=== PATIENT | male | born 1985 ===

== ENCOUNTER 2017-03-03 20:31 | Emergency (ER) | payer SELFPAY ==
[2017-03-03 20:48] VITALS: BP 131/90; PULSE 97; RESP 20; TEMP 98.1; O2SAT 98
[2017-03-03 21:18] LABS: RBC URINE < 1 /hpf (0-3); URINE BACTERIA RARE (<OCC); URINE BILIRUBIN NEGATIVE (NEGATIVE); URINE BLOOD NEGATIVE (NEGATIVE); URINE COLOR Straw (YELLOW); URINE GLUCOSE (UA) NORMAL (Normal); URINE KETONE NEGATIVE (NEGATIVE); URINE LEUKOCYTE ESTERASE NEG Leu/uL (Negative); URINE PROTEIN NEGATIVE (NEGATIVE); URINE UROBILINOGEN NORMAL mg/dL (0.2-1.0); WBC URINE < 1 /hpf (0-5)
[2017-03-03] MEDS ORDERED: Naproxen 550 mg Tab PO STA (21:40)
[2017-03-03] MEDS ORDERED: Naproxen 550 mg Tab PO ONE (21:48)
--- NOTE | 2017-03-03 22:37 | C.PDOC ---
History Of Present Illness Patient is a 31 year old male who presents to the ER with a complaint of right sided lower back pain for the past 2 weeks that is now radiating to the right buttock and leg. Patient states it worsens when he attempts to stand, bends forward or moves. Patient also reports having intermittent "twinges" in his chest. Denies trauma, numbness, weakness, or bladder/bowel incontinence. Time Seen by Provider: 03/03/17 20:52 Chief Complaint (Nursing): Back Pain History Per: Patient History/Exam Limitations: no limitations Onset/Duration Of Symptoms: Days (14), Intermittent Episodes Current Symptoms Are (Timing): Still Present Quality Of Discomfort: Unable To Describe Previous Symptoms: None. denies: Prior Injury Associated Symptoms: denies: Incontinence, New Weakness, New Numbness Exacerbating Factor(s): Movement, Standing, Other (Bending forward) Recent travel outside of the [place]: No Past Medical History Reviewed: Historical Data, Nursing Documentation, Vital Signs Vital Signs: Last Vital Signs Temp 98.1 F 03/03/17 20:45 Pulse 97 H 03/03/17 20:45 Resp 20 03/03/17 20:45 BP 131/90 03/03/17 20:45 Pulse Ox 98 03/03/17 23:39 - Medical History PMH: No Chronic Diseases Surgical History: No Surg Hx Family History: States: Unknown Family Hx - Social History Hx Alcohol Use: Yes Hx Substance Use: No Review Of Systems Except As Marked, All Systems Reviewed And Found Negative. Cardiovascular: Positive for: Other ("twinges" in chest) Genitourinary: Negative for: Incontinence Musculoskeletal: Positive for: Back Pain (Lower right) Neurological: Negative for: Weakness, Numbness Physical Exam - Physical Exam Appears: Non-toxic Skin: Normal Color, Warm, Dry, No Rash Head: Atraumatic, Normacephalic Eye(s): bilateral: Normal Inspection, PERRL, EOMI Oral Mucosa: Moist Throat: No Erythema, No Exudate Neck: Normal ROM, Supple Chest: Symmetrical, No Tenderness, No Ecchymosis, No Subcutaneous Emphysema Cardiovascular: Rhythm Regular, No Friction Rub, No Murmur Respiratory: Normal Breath Sounds, No Rales, No Rhonchi, No Wheezing Gastrointestinal/Abdominal: Soft, No Tenderness Back: No CVA Tenderness, No Vertebral Tenderness, Paraspinal Tenderness (Right, lumbar) Extremity: Normal ROM, No Calf Tenderness, No Swelling Neurological/Psych: Oriented x3, Normal Speech, Normal Cognition, Normal Motor, Normal Sensation Gait: Steady ED Course And Treatment O2 Sat by Pulse Oximetry: 98 (Room air) Pulse Ox Interpretation: Normal - Radiology CXR: Interpreted by Me, Viewed By Me CXR Interpretation: Yes: No Acute Disease - Other Rad Lumbar spinal x-ray X-Ray: Interpreted by Me, Viewed By Me Interpretation: No acute fractures or dislocations Progress Note: CXR, spinal x-ray, STD labs and urine culture. Flexeril and anaprox administered. Medical Decision Making Medical Decision Making: The patient symptoms are muscular in nature as they are exacerbated by movement and bending. On re-exam, the patient reports improvement of symptoms. Lungs are CTA, heart is RRR, abdomen is soft, non-tender and tolerating PO well. Ambulatory in the ED with steady gait, Follow up with the medical doctor within 1-2 days. return if worsened. Disposition - Disposition Referrals: [facility] [Outside] Disposition: HOME/ ROUTINE Disposition Time: 22:34 Condition: GOOD Additional Instructions: Follow up with the medical doctor within 1-2 days. return if worsened. Prescriptions: Acetaminophen [Tylenol] 325 mg PO Q6 PRN #30 tab PRN Reason: Pain, Mild (1-3) diaZEpam [Valium] 5 mg PO TID #21 tab Naproxen [Naprosyn] 500 mg PO BID #20 tab Instructions: Lumbar Radiculopathy (ED) - Clinical Impression Clinical Impression: Lumbar radiculopathy - Scribe Statement The provider has reviewed the documentation as recorded by the Scribpamela Pablo All medical record entries made by the Remingtonibpamela were at my direction and personally dictated by me. I have reviewed the chart and agree that the record accurately reflects my personal performance of the history, physical exam, medical decision making, and the department course for this patient. I have also personally directed, reviewed, and agree with the discharge instructions and disposition.
--- NOTE | 2017-03-04 10:29 | RAD ---
HISTORY: pain in chest COMPARISON: None TECHNIQUE: Chest PA and lateral FINDINGS: LUNGS: No active pulmonary disease. PLEURA: No significant pleural effusion identified. No pneumothorax apparent. CARDIOVASCULAR: Normal. OSSEOUS STRUCTURES: No significant abnormalities. VISUALIZED UPPER ABDOMEN: Normal. OTHER FINDINGS: None. IMPRESSION: No active pulmonary disease.
--- NOTE | 2017-03-04 10:45 | RAD ---
PROCEDURE: Radiographs of the Lumbar Spine. HISTORY: Back pain COMPARISON: No prior. FINDINGS: BONES: There is normal alignment of the lumbar vertebral bodies. There is straightening of the lumbar spine with loss of normal lumbar lordosis. Vertebral height is maintained. Bone mineralization is normal. There is no acute fracture, spondylolysis or spondylolisthesis. DISC SPACES: The disc spaces are preserved. OTHER FINDINGS: There are no pathologic soft tissue calcifications. Both sacroiliac joints are normal. IMPRESSION: No acute fracture, spondylolysis or spondylolisthesis.
== END 2017-03-03 22:44 | disposition home or self-care (01) ==
LOC: C.ER 20:31
DX: M54.16 Radiculopathy, lumbar region (principal)

== ENCOUNTER 2017-03-15 16:50 | Emergency (ER) | payer OTHER ==
[2017-03-15] MEDS ORDERED: Sodium Chloride 0.9% 1,000 ML IV ONE (17:30)
[2017-03-15] MEDS ORDERED: Sodium Chloride 0.9% 1,000 ML ONE (17:41)
--- NOTE | 2017-03-15 17:44 | C.PDOC ---
History Of Present Illness 31 y/o male presents to ED with complaints of abdominal pain for 2 days with associated nausea. Patient denies vomiting, diarrhea, urinary symptoms, fever, chills or any other complaints at this time. Time Seen by Provider: 03/15/17 17:11 Chief Complaint (Nursing): Abdominal Pain History Per: Patient History/Exam Limitations: no limitations Onset/Duration Of Symptoms: Days Current Symptoms Are (Timing): Still Present Location Of Pain/Discomfort: Epigastric Radiation Of Pain To:: Back Exacerbating Factors: None Last Bowel Movement: Today Recent travel outside of the [place]: No Past Medical History Reviewed: Historical Data, Nursing Documentation, Vital Signs Vital Signs: Last Vital Signs Temp 98.1 F 03/15/17 17:02 Pulse 114 H 03/15/17 17:02 Resp 18 03/15/17 17:02 BP 116/80 03/15/17 17:02 Pulse Ox 99 03/15/17 17:45 - Medical History PMH: No Chronic Diseases Surgical History: No Surg Hx Family History: States: Unknown Family Hx - Social History Hx Alcohol Use: Yes Hx Substance Use: No - Immunization History Hx Tetanus Toxoid Vaccination: No Hx Influenza Vaccination: No Hx Pneumococcal Vaccination: No Review Of Systems Except As Marked, All Systems Reviewed And Found Negative. Constitutional: Negative for: Fever, Chills Respiratory: Negative for: Cough Gastrointestinal: Positive for: Abdominal Pain. Negative for: Nausea, Vomiting , Diarrhea Genitourinary: Negative for: Dysuria, Frequency Musculoskeletal: Negative for: Back Pain Skin: Negative for: Rash Physical Exam - Physical Exam Appears: Non-toxic, No Acute Distress Skin: Normal Color, Warm Head: Atraumatic, Normacephalic Oral Mucosa: Moist Neck: Normal Cardiovascular: Rhythm Regular, No Murmur Respiratory: Normal Breath Sounds, No Rales, No Rhonchi, No Wheezing Gastrointestinal/Abdominal: Soft, Tenderness (Mild EPigas), No Guarding, No Rebound Extremity: Normal ROM, Capillary Refill (<2 seconds), No Deformity Neurological/Psych: Oriented x3 Gait: Steady ED Course And Treatment - Laboratory Results Result Diagrams: 03/15/17 17:43 03/15/17 17:43 Lab Interpretation: Normal ECG: Interpreted By Me ECG Rhythm: Sinus Rhythm ECG Interpretation: Normal O2 Sat by Pulse Oximetry: 99 (RA) Pulse Ox Interpretation: Normal Progress Note: Treated with IVF NSS. On re-evaluation abdomen soft non-tender Medical Decision Making Medical Decision Making: Orders: Labs Disposition Counseled Patient/Family Regarding: Studies Performed, Diagnosis, Need For Followup, Rx Given - Disposition Referrals: [facility] [Outside] [facility] [Outside] Disposition Time: 18:50 Condition: STABLE Prescriptions: Famotidine [Pepcid] 20 mg PO BID #20 tab Instructions: Abdominal Pain (ED) - POA Present On Arrival: None - Clinical Impression Clinical Impression: Abdominal pain - PA / ENGRAVER AUTOMATIC / Resident Statement MD/DO has reviewed & agrees with the documentation as recorded. - Scribe Statement The provider has reviewed the documentation as recorded by the Remingtonibpamela Thrasher All medical record entries made by the Yuliya were at my direction and personally dictated by me. I have reviewed the chart and agree that the record accurately reflects my personal performance of the history, physical exam, medical decision making, and the department course for this patient. I have also personally directed, reviewed, and agree with the discharge instructions and disposition.
[2017-03-15 17:47] LABS: BASO # 0.1 K/uL (0.0-0.2); BASO % 0.9 % (0.0-2.0); EOS # 0.2 K/uL (0.0-0.7); EOS % 1.9 % (0.0-4.0); HEMOGLOBIN 13.4 g/dL (12.0-18.0); LYMPH # 2.5 K/uL (1.0-4.3); LYMPH % 31.2 % (20.0-40.0); MEAN CORPUSCULAR HEMOGLOBIN 28.1 pg (27.0-31.0); MEAN PLATELET VOLUME 8.5 fL (7.2-11.7); MONO # 0.8 K/uL (0.0-0.8); MONO % 9.9 % (0.0-10.0); NEUT # 4.5 K/uL (1.8-7.0); NEUT % 56.1 % (50.0-75.0); NRBC % 0.1 % (0.0-2.0); RBC 4.77 Mil/uL (4.40-5.90); RED CELL DISTRIBUTION WIDTH 13.3 % (11.5-14.5); WHITE BLOOD COUNT 8.1 K/uL (4.8-10.8)
[2017-03-15 17:55] LABS: URINE BILIRUBIN NEGATIVE (NEGATIVE); URINE BLOOD NEGATIVE (NEGATIVE); URINE CLARITY Clear (Clear); URINE COLOR Yellow (YELLOW); URINE GLUCOSE (UA) NORMAL (Normal); URINE LEUKOCYTE ESTERASE NEG Leu/uL (Negative); URINE NITRATE NEGATIVE (NEGATIVE); URINE PROTEIN NEGATIVE (NEGATIVE); URINE UROBILINOGEN NORMAL mg/dL (0.2-1.0)
[2017-03-15 17:56] LABS: ALBUMIN 4.1 g/dL (3.5-5.0)
[2017-03-15 17:58] LABS: GFR AFRICAN-AMERICAN > 60; GFR NON-AFRICAN AMERICAN > 60
[2017-03-15 17:59] LABS: ALT/SGPT 20 U/L (21-72); AST/SGOT 18 U/L (17-59); BLOOD UREA NITROGEN 9 mg/dL (9-20); LIPASE 100 U/L (23-300)
[2017-03-15 18:00] LABS: CALCIUM 8.9 mg/dl (8.6-10.4)
[2017-03-15 19:18] VITALS: BP 116/78; PULSE 82; RESP 20; TEMP 98.4; O2SAT 100
--- NOTE | 2017-03-17 06:39 | CARD ---
APPROVED REPORT EKG Measurement Heart [id number] ND [id number] <Conclusion> Sinus rhythm with sinus arrhythmia with short ND Otherwise normal ECG
== END 2017-03-15 19:16 | disposition home or self-care (01) ==
LOC: C.ER 16:50
DX: R10.13 Epigastric pain (principal)
CPT/HCPCS: 80053; 81001; 83690; 85025; 93005; 96361; 96374; 96375; 99284; J2405; J7040

== ENCOUNTER 2017-03-23 09:07 | Emergency (ER) | payer OTHER, SELFPAY ==
[2017-03-23 09:11] VITALS: TEMP 98.2; O2SAT 100
[2017-03-23] MEDS ORDERED: Sodium Chloride 0.9% 1,000 ML IV STA (09:41)
[2017-03-23 10:08] LABS: BASO # 0.1 K/uL (0.0-0.2); BASO % 0.8 % (0.0-2.0); EOS # 0.1 K/uL (0.0-0.7); EOS % 1.1 % (0.0-4.0); HEMOGLOBIN 12.9 g/dL (12.0-18.0); LYMPH # 1.9 K/uL (1.0-4.3); LYMPH % 16.1 % (20.0-40.0); MEAN CELL VOLUME 84.9 fL (80.0-94.0); MEAN CORPUSCULAR HEMOGLOBIN 28.2 pg (27.0-31.0); MEAN CORPUSCULAR HGB CONC 33.2 g/dL (33.0-37.0); MEAN PLATELET VOLUME 8.6 fL (7.2-11.7); MONO # 0.5 K/uL (0.0-0.8); NEUT # 9.3 K/uL (1.8-7.0); RBC 4.58 Mil/uL (4.40-5.90); RED CELL DISTRIBUTION WIDTH 13.3 % (11.5-14.5)
[2017-03-23 10:16] LABS: URINE BILIRUBIN NEGATIVE (NEGATIVE); URINE BLOOD NEGATIVE (NEGATIVE); URINE CLARITY Clear (Clear); URINE COLOR Straw (YELLOW); URINE GLUCOSE (UA) NORMAL (Normal); URINE LEUKOCYTE ESTERASE NEG Leu/uL (Negative); URINE NITRATE NEGATIVE (NEGATIVE); URINE PROTEIN NEGATIVE (NEGATIVE); URINE UROBILINOGEN NORMAL mg/dL (0.2-1.0)
[2017-03-23 10:18] LABS: INR 1.1; PROTHROMBIN TIME 12.2 SECONDS (9.7-12.2)
[2017-03-23 10:19] LABS: GFR AFRICAN-AMERICAN > 60; GFR NON-AFRICAN AMERICAN > 60
[2017-03-23 10:20] LABS: ALB/GLOB RATIO 0.9 (1.0-2.1); ALT/SGPT 21 U/L (21-72); AST/SGOT 20 U/L (17-59); BLOOD UREA NITROGEN 10 mg/dL (9-20); CALCIUM 8.9 mg/dl (8.6-10.4); LIPASE 45 U/L (23-300)
[2017-03-23] MEDS ORDERED: Sodium Chloride 0.9% 1,000 ML ONE (10:46)
[2017-03-23] MEDS ORDERED: Iohexol 240 (50 ml) ONE (10:46)
[2017-03-23] MEDS ORDERED: Iohexol 240 (50 ml) PO ONE (11:04)
[2017-03-23] MEDS ORDERED: Iodixanol 320 MG/ML 100 ML BOTTLE IV ONE (12:21)
--- NOTE | 2017-03-23 12:22 | C.PDOC ---
History Of Present Illness Patient is a 31 y/o male that presents to the ED for evaluation of abdominal pain (mostly right sided) for the last few days. Pt describes the pain as squeezing sensation on the right side of his abdomen. Also, states that he feels like he is losing weight, but has not measured his weight. Patient states that he was here 2 weeks ago for back pain. Patient also reports being seen here for abdominal pain, but states he only had blood work done, denies any type of imaging. Patient states he still does not feel better from his last visit. Patient also complains of bruises on his arms. Otherwise, denies any n/v/ d, constipation, urinary symptoms, back pain, weakness, numbness, fever, chills , or any other associated symptoms at this time. Time Seen by Provider: 03/23/17 09:21 Chief Complaint (Nursing): Abdominal Pain History Per: Patient History/Exam Limitations: no limitations Onset/Duration Of Symptoms: Days Current Symptoms Are (Timing): Still Present Location Of Pain/Discomfort: RUQ, RLQ Radiation Of Pain To:: None Quality Of Discomfort: "Pain" Associated Symptoms: denies: Fever, Chills, Nausea, Vomiting, Diarrhea, Loss Of Appetite, Back Pain, Chest Pain, Constipation, Urinary Symptoms Exacerbating Factors: None Alleviating Factors: None Recent travel outside of the [place]: No Additional History Per: Patient Past Medical History Reviewed: Historical Data, Nursing Documentation, Vital Signs Vital Signs: Last Vital Signs Temp 98.2 F 03/23/17 09:10 Pulse 122 H 03/23/17 09:10 Resp 20 03/23/17 09:10 BP 142/86 03/23/17 09:10 Pulse Ox 100 03/23/17 13:11 Family History: States: Unknown Family Hx - Social History Hx Alcohol Use: Yes Hx Substance Use: No - Immunization History Hx Tetanus Toxoid Vaccination: No Hx Influenza Vaccination: No Hx Pneumococcal Vaccination: No Review Of Systems Except As Marked, All Systems Reviewed And Found Negative. Constitutional: Negative for: Fever, Chills Cardiovascular: Negative for: Chest Pain, Palpitations Respiratory: Negative for: Shortness of Breath Gastrointestinal: Positive for: Abdominal Pain (right side). Negative for: Nausea, Vomiting, Diarrhea, Constipation Genitourinary: Negative for: Dysuria, Frequency, Hematuria Musculoskeletal: Negative for: Back Pain Skin: Positive for: Bruising (arms) Neurological: Negative for: Weakness, Numbness Physical Exam - Physical Exam Appears: Non-toxic, No Acute Distress Skin: Normal Color, Warm, Dry, No Rash Head: Atraumatic, Normacephalic Eye(s): bilateral: Normal Inspection, EOMI Neck: Normal ROM, Supple Chest: Symmetrical, No Tenderness Cardiovascular: Rhythm Regular, No Murmur Respiratory: Normal Breath Sounds, No Rales, No Rhonchi, No Wheezing Gastrointestinal/Abdominal: Soft, Tenderness (right side of abdomen), No Guarding, No Rebound Extremity: Normal ROM, No Deformity Neurological/Psych: Oriented x3, Normal Speech, Normal Cognition ED Course And Treatment - Laboratory Results Result Diagrams: 03/23/17 10:03 03/23/17 10:03 O2 Sat by Pulse Oximetry: 100 (on RA) Pulse Ox Interpretation: Normal - CT Scan/US Abd & pelvis CT Other Rad Studies (CT/US): Read By Radiologist, Radiology Report Reviewed CT/US Interpretation: FINDINGS: LOWER THORAX: No visible consolidation, pleural effusion, or pneumothorax. LIVER: Mild hypoattenuation of the hepatic parenchyma compatible with hepatic steatosis. GALLBLADDER AND BILE DUCTS: Unremarkable. PANCREAS: Unremarkable. SPLEEN: Unremarkable. ADRENALS: Unremarkable. KIDNEYS AND URETERS: The kidneys enhance symmetrically. No hydronephrosis or obstructing renal calculus. BLADDER: The urinary bladder appears unremarkable. REPRODUCTIVE: Unremarkable. APPENDIX: The appendix appears within normal limits of caliber. No secondary signs of acute appendicitis. BOWEL: The stomach is nondistended. The bowel loops appear within normal limits of caliber without evidence of intestinal obstruction. PERITONEUM: No significant free fluid. No definite free air. LYMPH NODES: No bulky lymphadenopathy identified. VASCULATURE: No aortic aneurysm. BONES: No acute osseous abnormality is detected. OTHER FINDINGS: None. IMPRESSION: Mild hepatic steatosis. Progress Note: Labs, abd & pelvis CT ordered and reviewed. Patient was given Iohexol PO, Protonix inj, Zofran inj, and IV fluids in the ER. On reassessment, patient is resting comfortably, with no acute distress. Patient reports improvement of symptoms. Disposition - Disposition Disposition: HOME/ ROUTINE Disposition Time: 13:17 Condition: STABLE Additional Instructions: Follow up with PMD and GI within 1-2 days. Return to Ed if feel worse. Instructions: Abdominal Pain (ED) - Clinical Impression Clinical Impression: Abdominal pain - PA / PULVERIZING AND SIFTING OPERATOR / Resident Statement MD/DO has reviewed & agrees with the documentation as recorded. - Scribe Statement The provider has reviewed the documentation as recorded by the Scribe Candy Patel All medical record entries made by the Remingtonibe were at my direction and personally dictated by me. I have reviewed the chart and agree that the record accurately reflects my personal performance of the history, physical exam, medical decision making, and the department course for this patient. I have also personally directed, reviewed, and agree with the discharge instructions and disposition.
--- NOTE | 2017-03-23 12:47 | CT ---
PROCEDURE: CT Abdomen and Pelvis with oral and IV contrast. HISTORY: abd pain COMPARISON: None available TECHNIQUE: Contiguous axial images of the abdomen and pelvis. Oral and IV contrast was administered. Coronal and Sagittal reformats generated and reviewed. Contrast dose: 100 cc visi opaque 320 Radiation dose: Total exam DLP = 457.53 mGy-cm. This CT exam was performed using one or more of the following dose reduction techniques: Automated exposure control, adjustment of the mA and/or kV according to patient size, and/or use of iterative reconstruction technique. FINDINGS: LOWER THORAX: No visible consolidation, pleural effusion, or pneumothorax. LIVER: Mild hypoattenuation of the hepatic parenchyma compatible with hepatic steatosis. GALLBLADDER AND BILE DUCTS: Unremarkable. PANCREAS: Unremarkable. SPLEEN: Unremarkable. ADRENALS: Unremarkable. KIDNEYS AND URETERS: The kidneys enhance symmetrically. No hydronephrosis or obstructing renal calculus. BLADDER: The urinary bladder appears unremarkable. REPRODUCTIVE: Unremarkable. APPENDIX: The appendix appears within normal limits of caliber. No secondary signs of acute appendicitis. BOWEL: The stomach is nondistended. The bowel loops appear within normal limits of caliber without evidence of intestinal obstruction. PERITONEUM: No significant free fluid. No definite free air. LYMPH NODES: No bulky lymphadenopathy identified. VASCULATURE: No aortic aneurysm. BONES: No acute osseous abnormality is detected. OTHER FINDINGS: None. IMPRESSION: Mild hepatic steatosis.
[2017-03-23 13:29] VITALS: BP 128/84; PULSE 98; RESP 16
== END 2017-03-23 13:29 | disposition home or self-care (01) ==
LOC: C.ER 09:07
DX: R10.11 Right upper quadrant pain (principal); R10.31 Right lower quadrant pain
CPT/HCPCS: 74177; 80053; 81001; 83690; 85025; 85610; 85730; 99285; Q9966; Q9967

== ENCOUNTER 2017-06-13 09:21 | Emergency (ER) | payer SELFPAY ==
[2017-06-13 09:41] VITALS: O2SAT 99
--- NOTE | 2017-06-13 10:16 | C.PDOC ---
Time Seen by Provider: 06/13/17 10:11 Chief Complaint (Nursing): Back Pain Past Medical History Vital Signs: Last Vital Signs Temp 98 F 06/13/17 09:40 Pulse 129 H 06/13/17 09:40 Resp 20 06/13/17 09:40 BP 118/82 06/13/17 09:40 Pulse Ox 99 06/13/17 09:40 Family History: States: Unknown Family Hx - Social History Hx Alcohol Use: Yes Hx Substance Use: No - Immunization History Hx Tetanus Toxoid Vaccination: No Hx Influenza Vaccination: No Hx Pneumococcal Vaccination: No ED Course And Treatment O2 Sat by Pulse Oximetry: 99 Disposition - Disposition
--- NOTE | 2017-06-13 10:19 | C.PDOC ---
History Of Present Illness 31 yr old male presents to the ER from [facility], with complaints of back pain and weight loss for the past 2 months. Patient states he has been in [place] for the past 3 years and no TB exposure. Patient reported of occasional nausea for the past 10 days but states has resolved now. Patient reports the back pain is localized to lower back, midline and tailbone. States feels "burning" to the area and made worse when sits. Patient denies fever, chills, vomiting, abdominal pain, diarrhea, dysuria, incontinence, weakness or numbness. FROM [facility]. PT W BACK PAIN, WT LOSS X 2 MONTHS. NO FEVER, NIGHT SWEATS. NO TB EXPOSURE, HAS BEEN IN [place] 3 [place]. OCC ASSOC NAUSEA X 10 DAYS BUT NOW RESOLVED. NO ASSOC ABD PAIN, BLOATING. BACK PAIN LOCALIZED LOWER BACK, MIDLINE, TAILBONE. FEELS "BURNING" TO AREA WORSE WHEN SITS. NO WEAKNESS DENIES HO SMOKING, ETOH. DENIES PMH EXAM Time Seen by Provider: 06/13/17 10:11 Chief Complaint (Nursing): Back Pain History Per: Patient History/Exam Limitations: no limitations Onset/Duration Of Symptoms: Days Past Medical History Reviewed: Historical Data, Nursing Documentation, Vital Signs Vital Signs: Last Vital Signs Temp 98.7 F 06/13/17 12:46 Pulse 90 06/13/17 12:46 Resp 18 06/13/17 12:46 BP 117/79 06/13/17 12:46 Pulse Ox 99 06/13/17 12:48 Family History: States: No Known Family Hx - Social History Hx Alcohol Use: Yes Hx Substance Use: No - Immunization History Hx Tetanus Toxoid Vaccination: No Hx Influenza Vaccination: No Hx Pneumococcal Vaccination: No Review Of Systems Except As Marked, All Systems Reviewed And Found Negative. Constitutional: Positive for: Weight loss. Negative for: Fever, Chills Gastrointestinal: Negative for: Vomiting, Abdominal Pain, Diarrhea Genitourinary: Negative for: Dysuria, Incontinence Musculoskeletal: Positive for: Back Pain Neurological: Negative for: Weakness, Numbness Physical Exam - Physical Exam Appears: Non-toxic, No Acute Distress Skin: Warm, Dry, No Rash Head: Atraumatic, Normacephalic Chest: Symmetrical, No Tenderness Cardiovascular: Rhythm Regular, No Murmur Respiratory: Normal Breath Sounds, No Rales, No Rhonchi, No Stridor, No Wheezing Gastrointestinal/Abdominal: Normal Exam, Soft, No Tenderness, No Guarding, No Rebound Back: Normal Inspection, No CVA Tenderness, No Paraspinal Tenderness Extremity: Normal ROM, No Swelling Neurological/Psych: Oriented x3, Normal Speech, Normal Motor ED Course And Treatment - Laboratory Results Result Diagrams: 06/13/17 11:16 06/13/17 11:16 O2 Sat by Pulse Oximetry: 99 (RA) Pulse Ox Interpretation: Normal - Radiology CXR: Interpreted by Me, Viewed By Me CXR Interpretation: Yes: No Acute Disease. No: Fracture - Other Rad X-Ray - LS Spine X-Ray: Interpreted by Me, Viewed By Me Interpretation: Negative. Progress - Re-Evaluation Re-evaluation Note: 06/13/17 12:42 EXAM UNCH PRIOR. APPEARS COMFORTABLE NAD. ADVISED OUTPT FOR MRI. - Data Reviewed Data Reviewed: Lab, Diagnostic imaging, Old records Medical Decision Making Medical Decision Making: PLAN: * X-Ray - LS Spine * CXR * CBC * BMP * Urinalysis Disposition Counseled Patient/Family Regarding: Studies Performed, Diagnosis, Need For Followup - Disposition Referrals: [facility] [Outside] [facility] [Outside] [facility] [Outside] OUTPATIENT,RADIOLOGY [Other] Disposition: HOME/ ROUTINE Disposition Time: 12:43 Condition: GOOD Additional Instructions: REMOVE PATCH 12 HOURS AFTER INITIAL APPLICATION. Prescriptions: Lidocaine 5% [Lidoderm] 1 ea TD PRN PRN #10 patch PRN Reason: Pain, Moderate (4-7) Naproxen 500 mg PO BID #30 tab Instructions: Chronic Back Pain (ED) Forms: [employer] (Bangladeshi) - Clinical Impression Clinical Impression: Chronic back pain, Weight loss - Scribe Statement The provider has reviewed the documentation as recorded by the Yuliya Adkins Provider Attestation: All medical record entries made by the Remingtonibe were at my direction and personally dictated by me. I have reviewed the chart and agree that the record accurately reflects my personal performance of the history, physical exam, medical decision making, and the department course for this patient. I have also personally directed, reviewed, and agree with the discharge instructions and disposition.
[2017-06-13 11:20] LABS: BASO # 0.1 K/uL (0.0-0.2); BASO % 1.2 % (0.0-2.0); EOS # 0.3 K/uL (0.0-0.7); EOS % 4.7 % (0.0-4.0); HEMATOCRIT 38.4 % (35.0-51.0); LYMPH # 1.7 K/uL (1.0-4.3); LYMPH % 29.9 % (20.0-40.0); MEAN CELL VOLUME 84.5 fL (80.0-94.0); MEAN CORPUSCULAR HEMOGLOBIN 29.2 pg (27.0-31.0); MEAN CORPUSCULAR HGB CONC 34.5 g/dL (33.0-37.0); MEAN PLATELET VOLUME 8.7 fL (7.2-11.7); MONO # 0.5 K/uL (0.0-0.8); MONO % 8.4 % (0.0-10.0); RED CELL DISTRIBUTION WIDTH 12.7 % (11.5-14.5)
[2017-06-13 11:21] LABS: WHITE BLOOD COUNT 5.8 K/uL (4.8-10.8)
[2017-06-13 11:37] LABS: URINE BILIRUBIN NEGATIVE (NEGATIVE); URINE BLOOD NEGATIVE (NEGATIVE); URINE COLOR Straw (YELLOW); URINE GLUCOSE (UA) NORMAL (Normal); URINE KETONE NEGATIVE (NEGATIVE); URINE LEUKOCYTE ESTERASE NEG Leu/uL (Negative); URINE PROTEIN NEGATIVE (NEGATIVE); URINE UROBILINOGEN NORMAL mg/dL (0.2-1.0); WBC URINE < 1 /hpf (0-5)
[2017-06-13 11:42] LABS: CHLORIDE 102 mmol/L (98-107); POTASSIUM 3.9 mmol/L (3.6-5.2); SODIUM 140 mmol/L (132-148)
[2017-06-13 11:45] LABS: BLOOD UREA NITROGEN 9 mg/dL (9-20); CALCIUM 9.3 mg/dl (8.6-10.4); CARBON DIOXIDE 22 mmol/L (22-30); GFR AFRICAN-AMERICAN > 60; GLUCOSE,RANDOM 91 mg/dL (75-110)
--- NOTE | 2017-06-13 12:00 | RAD ---
HISTORY: cough weight loss COMPARISON: Chest x-ray performed 03/03/17 TECHNIQUE: Chest PA and lateral FINDINGS: LUNGS: No focal consolidation. Please note that chest x-ray has limited sensitivity for the detection of pulmonary masses. PLEURA: No significant pleural effusion identified. No definite pneumothorax . CARDIOVASCULAR: The cardiomediastinal silhouette appears within normal limits of size. OSSEOUS STRUCTURES: No acute osseous abnormality identified. VISUALIZED UPPER ABDOMEN: Unremarkable. OTHER FINDINGS: None. IMPRESSION: No focal consolidation, significant pleural effusion, or definite pneumothorax identified.
--- NOTE | 2017-06-13 12:08 | RAD ---
PROCEDURE: Radiographs of the Lumbar Spine. HISTORY: PAIN, WEIGHT LOSS COMPARISON: Lumbar spine radiographs performed 03/03/17 FINDINGS: BONES: Alignment appears satisfactory. No listhesis. No acute displaced fracture identified. DISC SPACES: Unremarkable. OTHER FINDINGS: None. IMPRESSION: No acute displaced fracture or subluxation identified.
[2017-06-13 12:47] VITALS: BP 117/79; PULSE 90; RESP 18; TEMP 98.7
[2017-06-13] MEDS ORDERED: Lidocaine 5% Patch TD ONE (12:47)
[2017-06-13] MEDS ORDERED: Lidocaine 5% Patch TD SCH (13:00)
== END 2017-06-13 13:17 | disposition home or self-care (01) ==
LOC: C.ER 09:21
DX: M54.9 Dorsalgia, unspecified (principal); G89.29 Other chronic pain; R63.4 Abnormal weight loss
CPT/HCPCS: 71020; 72100; 80048; 81001; 85025; 87040; 87086; 96374; 99284; J1885

== ENCOUNTER 2017-11-22 14:38 | Emergency (ER) | payer OTHER, SELFPAY ==
[2017-11-22 14:50] VITALS: O2SAT 100
--- NOTE | 2017-11-22 15:30 | C.PDOC ---
History Of Present Illness 32 y/o male c/o left lateral foot pain x 10 days. Pt able to ambulate on left foot. Pt states he applied " muscular rub medicine " w/o relief. Pt denies using NSAIDs. He denies any trauma.He is also c/o right lower back x 7-10 days. He denies radiation of pain. Time Seen by Provider: 11/22/17 14:47 Chief Complaint (Nursing): Lower Extremity Problem/Injury History Per: Patient History/Exam Limitations: no limitations Onset/Duration Of Symptoms: Days Current Symptoms Are (Timing): Still Present Severity: Moderate Past Medical History Reviewed: Historical Data, Nursing Documentation, Vital Signs Vital Signs: Last Vital Signs Temp 97.2 F L 11/22/17 15:41 Pulse 75 11/22/17 15:41 Resp 18 11/22/17 15:51 BP 115/78 11/22/17 15:41 Pulse Ox 100 11/22/17 18:39 - Medical History PMH: No Chronic Diseases Surgical History: No Surg Hx Family History: States: No Known Family Hx - Social History Hx Alcohol Use: Yes Hx Substance Use: No - Immunization History Hx Tetanus Toxoid Vaccination: No Hx Influenza Vaccination: No Hx Pneumococcal Vaccination: No Review Of Systems Musculoskeletal: Positive for: Back Pain (lower back pain), Foot Pain (left foot ) Physical Exam - Physical Exam Appears: Non-toxic, No Acute Distress Skin: Warm, Dry Head: Atraumatic, Normacephalic Eye(s): bilateral: Normal Inspection Back: No Vertebral Tenderness, Paraspinal Tenderness (right-sided paralumbar tenderness) Extremity: Normal ROM (left knee, left ankle), Tenderness (tenderness to lateral foot distal to malleolus and on adjacent plantar surface with no swelling, no bruising, skin intact, no warmth or erythema. ), No Swelling Pulses: Left Dorsalis Pedis: Decreased, Normal Neurological/Psych: Oriented x3, Normal Speech, Normal Cognition, Normal Motor, Normal Sensation ED Course And Treatment O2 Sat by Pulse Oximetry: 100 (RA) Pulse Ox Interpretation: Normal - Other Rad Left Foot X-Ray: Viewed By Me, Read By Radiologist Interpretation: PROCEDURE: Left Foot Radiographs. HISTORY: pain to 5th metatarsal. COMPARISON: None. FINDINGS: BONES: Normal. No fracture. JOINTS : Normal. SOFT TISSUES: Normal. OTHER FINDINGS: None. IMPRESSION: Normal left foot radiographs. Medical Decision Making Medical Decision Making: foot pain x 10 days no trauma, neg foot xray. justine bandage and post op shoe appplied, d/c with nsaids and podiatry f/u Disposition Counseled Patient/Family Regarding: Studies Performed, Diagnosis, Need For Followup, Rx Given - Disposition Referrals: Podiatry Clinic [Outside] Disposition: HOME/ ROUTINE Disposition Time: 15:42 Condition: GOOD Additional Instructions: Wear orthopedic shoe for comfort. Ibuprofen for foot pain and back pain. Follow up in podiatry clinic. Prescriptions: Ibuprofen [Motrin] 600 mg PO TID #30 tab Instructions: Low Back Pain (DC) Forms: [facility] ([place]), General Discharge Instructions - Clinical Impression Clinical Impression: Left foot pain, Strain of lumbar region - PA / INSOLE LIP TURNER / Resident Statement MD/DO has reviewed & agrees with the documentation as recorded. - Scribe Statement The provider has reviewed the documentation as recorded by the Yuliya Hurtado Provider Attestation All medical record entries made by the Scribe were at my direction and personally dictated by me. I have reviewed the chart and agree that the record accurately reflects my personal performance of the history, physical exam, medical decision making, and the department course for this patient. I have also personally directed, reviewed, and agree with the discharge instructions and disposition.
--- NOTE | 2017-11-22 15:34 | RAD ---
PROCEDURE: Left Foot Radiographs. HISTORY: pain to 5th metatarsal COMPARISON: None. FINDINGS: BONES: Normal. No fracture. JOINTS: Normal. SOFT TISSUES: Normal. OTHER FINDINGS: None. IMPRESSION: Normal left foot radiographs.
[2017-11-22 15:42] VITALS: BP 115/78; PULSE 75; TEMP 97.2
[2017-11-22 15:53] VITALS: RESP 18
== END 2017-11-22 15:51 | disposition home or self-care (01) ==
LOC: C.ER 14:38
DX: S39.012A Strain of muscle, fascia and tendon of lower back, initial encounter (principal); X58.XXXA Exposure to other specified factors, initial encounter; Y92.9 Unspecified place or not applicable; M79.672 Pain in left foot
CPT/HCPCS: 73630; 96372; 99285; J1885